=== PATIENT | female | born 1975 | race Caucasian/White ===

== ENCOUNTER 2022-11-08 17:52 | Emergency (ER) | payer BC ==
--- OUTSIDE RECORDS SUMMARY | 2022-11-08 17:55 | XMS REPORT | Continuity of Care Document ---
:1975 Author Organization [facility] Address [address] [place] [address] Dr. Castro [address] [place] [id number] Care Team Providers Name Role Phone HAMZAH_Moe Attending Clinician Unavailable Susana Goodson Attending Clinician [phone] FRANCISCO Attending Clinician Unavailable Akua Steve Attending Clinician [phone] WANDY Attending Clinician Unavailable Desiree Iqbal Attending Clinician [phone] HAMZAH_Moe Admitting Clinician Unavailable OSCAR_Penny Admitting Clinician Unavailable LUKE_Jane Admitting Clinician Unavailable Payers Payer Name Policy Type Policy Number Effective Date Expiration Date Penny mcknight [place] [id number] 2021 00:00:00 [place] Problems Condition Condition Condition Status Onset Resolution Last Treating Co mments Source Name Details Category Date Date Treatment Clinician Date Acute Acute Problem Active [place] upper Upper 9-14 Communi respirator Respirator 00:00: ty y y 00 Hospita infection Infection l Clinics Acute Acute Problem Active [place] sinusitis Sinusitis 4-11 Comm uni 00:00: ty 00 Hospita l Clinics Acute Acute Problem Active [place] pharyngiti Pharyngiti 4-11 Co mmuni s s 00:00: ty 00 Hospita Clinics Respirator Respirator Problem Active S weeny y tract y Tract 4-11 Communi congestion Congestion 00:00: ty and cough and Cough 00 Hosp ifeoma l Clinics Headache Headache Problem Active Sween y 4-11 Communi 00:00: ty 00 Hospita Clinics Elevated Elevated Problem Active Sween y blood-pres Blood-pres 4-11 Co mmuni sure sure 00:00: ty reading Reading 00 Hospita without without l diagnosis Diagnosis Clin ics of of hypertensi Hypertensi on on Allergies, Adverse Reactions, Alerts Allergy Allergy Status Severity Reaction(s) Onset Inactive Treating Comm ents Source Name Type Date Date Clinician Augmenti Allergy Active Moderate Vomiting Swe valentin n to Communi substanc ty e Hospita l Clinics Social History Smoking Status Start Date Stop Date Source Never Smoker [facility] Medications Ordered Filled Start Stop Current Ordering Indication Dosage Frequency Signature Comments Components Source Medication Medication Date Date Medication? Clinician (SIG) Name Name dexamethaso dexamethaso No Q1D dexamethas [place] ne sodium ne sodium 3-17 one sodium Communi phosphate phosphate 15:05: phosphate ty 10 mg/mL 10 mg/mL 44 10 mg/mL [facility] injection injection injection l solutionTak solutionTak solutionTa Clinics e 10 mg e 10 mg ke 10 mg every day every day every day by by by injection injection injection route. route. route. omeprazole omeprazole No 1capsul Q1D omeprazole [place] 40 mg 40 mg e(s) 40 mg Communi capsule,del capsule,del capsule,de ty ayed ayed layed Hospita release release release l Take 1 Take 1 Take 1 Clinics capsule capsule capsule every day every day every day by oral by oral by oral route for route for route for 90 days. 90 days. 90 days. Tylenol Tylenol No Tylenol [place] Communi ty Hospita l Clinics albuterol albuterol No albuterol [place] sulfate HFA sulfate HFA sulfate Communi 90 90 HFA 90 ty mcg/actuati mcg/actuati mcg/actuat Hospita on aerosol on aerosol ion l inhaler inhaler aerosol Clinic s INHALE 2 INHALE 2 inhaler PUFFS BY PUFFS BY INHALE 2 MOUTH EVERY MOUTH EVERY PUFFS BY 6 TO 8 6 TO 8 MOUTH HOURS FOR 7 HOURS FOR 7 EVERY 6 TO DAYS DAYS 8 HOURS FOR 7 DAYS azithromyci azithromyci No 1 Q1D azithromyc [place] n 500 mg n 500 mg in 500 mg Co mmuni tablet Take tablet Take tablet ty 1 tablet 1 tablet Take 1 Hospi ta every day every day tablet l by oral by oral every day Clin ics route for 5 route for 5 by oral days. days. route for 5 days. Medrol Medrol No 1dose Medrol [place] (Mickey) 4 mg (Mickey) 4 mg pk(s) (Mickey) 4 mg Communi tablets in tablets in tablets in ty a dose pack a dose pack a dose Hospita Take 1 dose Take 1 dose pack Take l pk by oral pk by oral 1 dose pk Clinics route as route as by oral directed directed route as for 6 days. for 6 days. directed for 6 days. Tylenol Tylenol No Tylenol [place] Communi ty [facility] benzonatate benzonatate No 1capsul TID benzonatat [place] 200 mg 200 mg e(s) e 200 mg Communi capsule capsule capsule ty Take 1 Take 1 Take 1 Hospita capsule 3 capsule 3 capsule 3 l times a day times a day times a Clinics by oral by oral day by route as route as oral route needed. needed. as needed. Medrol Medrol No 1dose Medrol [place] (Mickey) 4 mg (Mickey) 4 mg pk(s) (Mickey) 4 mg Communi tablets in tablets in tablets in ty a dose pack a dose pack a dose Hospita Take 1 dose Take 1 dose pack Take l pk by oral pk by oral 1 dose pk Clinics route as route as by oral directed. directed. route as directed. Tylenol Tylenol No Tylenol [place] Communi ty [facility] Zithromax Zithromax No Zithromax [place] Z-Mickey 250 Z-Mickey 250 Z-Mickey 250 Communi mg tablet mg tablet mg tablet ty TAKE 2 TAKE 2 TAKE 2 Hospita TABLETS TABLETS TABLETS l (500 MG) BY (500 MG) BY (500 MG) Clinics ORAL ROUTE ORAL ROUTE BY ORAL ONCE DAILY ONCE DAILY ROUTE ONCE FOR 1 DAY FOR 1 DAY DAILY FOR THEN 1 THEN 1 1 DAY THEN TABLET (250 TABLET (250 1 TABLET MG) BY ORAL MG) BY ORAL (250 MG) ROUTE ONCE ROUTE ONCE BY ORAL DAILY FOR 4 DAILY FOR 4 ROUTE ONCE DAYS DAYS DAILY FOR 4 DAYS clindamycin clindamycin No 1capsul Q8H clindamyci [place] HCl 300 mg HCl 300 mg e(s) n HCl 300 Communi capsule capsule mg capsule ty Take 1 Take 1 Take 1 Hospita capsule capsule capsule l every 8 every 8 every 8 Clinic s hours by hours by hours by oral route oral route oral route for 10 for 10 for 10 days. days. days. Tylenol Tylenol No Tylenol [place] Communi ty Hospita l Clinics Medrol Medrol No 1dose Medrol [place] (Mickey) 4 mg (Mickey) 4 mg pk(s) (Mickey) 4 mg Communi tablets in tablets in tablets in ty a dose pack a dose pack a dose Hospita Take 1 dose Take 1 dose pack Take l pk by oral pk by oral 1 dose pk Clinics route as route as by oral directed directed route as for 6 days. for 6 days. directed for 6 days. Zithromax Zithromax No Zithromax [place] Z-Mickey 250 Z-Mickey 250 Z-Mickey 250 Communi mg tablet mg tablet mg tablet ty TAKE 2 TAKE 2 TAKE 2 Hospita TABLETS TABLETS TABLETS l (500 MG) BY (500 MG) BY (500 MG) Clinics ORAL ROUTE ORAL ROUTE BY ORAL ONCE DAILY ONCE DAILY ROUTE ONCE FOR 1 DAY FOR 1 DAY DAILY FOR THEN 1 THEN 1 1 DAY THEN TABLET (250 TABLET (250 1 TABLET MG) BY ORAL MG) BY ORAL (250 MG) ROUTE ONCE ROUTE ONCE BY ORAL DAILY FOR 4 DAILY FOR 4 ROUTE ONCE DAYS DAYS DAILY FOR 4 DAYS amoxicillin amoxicillin No 1 Q12H amoxicilli [place] [phone] 875 Communi mg-potassiu mg-potassiu mg-potassi ty m [facility] clavulanate clavulanate clavulanat l 125 mg 125 mg e 125 mg Clinics tablet Take tablet Take tablet 1 tablet 1 tablet Take 1 every 12 every 12 tablet hours by hours by every 12 oral route oral route hours by as directed as directed oral route for 7 days. for 7 days. as directed for 7 days. ondansetron ondansetron No 1 Q5H ondansetro [place] 4 mg 4 mg n 4 mg Communi disintegrat disintegrat disintegra ty ing tablet ing tablet ting [facility] Place 1 Place 1 tablet l tablet tablet Place 1 Clinics every 4-6 every 4-6 tablet hours by hours by every 4-6 translingua translingua hours by l route as l route as translingu needed for needed for al route 5 days. 5 days. as needed for 5 days. prednisone prednisone No 1dose prednisone [place] 5 mg 5 mg pk(s) 5 mg Communi tablets in tablets in tablets in ty a dose pack a dose pack a dose Hospita Take 1 dose Take 1 dose pack Take l pk by oral pk by oral 1 dose pk Clinics route as route as by oral directed directed route as for 6 days. for 6 days. directed for 6 days. prednisone prednisone No 1 BID prednisone [place] 20 mg 20 mg 20 mg Communi tablet Take tablet Take tablet ty 1 tablet 1 tablet Take 1 Hospi ta twice a day twice a day tablet l by oral by oral twice a Clinic s route for 5 route for 5 day by days. days. oral route for 5 days. Tylenol Tylenol No Tylenol [place] Communi ty Hospita l Clinics acetylcyste acetylcyste No 2capsul BID acetylcyst [place] ine 600 mg ine 600 mg e(s) eine 600 Communi capsule capsule mg capsule ty Take 2 Take 2 Take 2 Hospita capsules capsules capsules l twice a day twice a day twice a Clinics by oral by oral day by route. route. oral route. azithromyci azithromyci No 1 Q1D azithromyc [place] n 500 mg n 500 mg in 500 mg Co mmuni tablet Take tablet Take tablet ty 1 tablet 1 tablet Take 1 Hospi ta every day every day tablet l by oral by oral every day Clin ics route for 5 route for 5 by oral days. days. route for 5 days. fenofibrate fenofibrate No 1 Q1D fenofibrat [place] nanocrystal nanocrystal e C ommuni lized 145 lized 145 nanocrysta ty mg tablet mg tablet llized 145 Hospita Take 1 Take 1 mg tablet l tablet tablet Take 1 Clinics every day every day tablet by oral by oral every day route for route for by oral 30 days. 30 days. route for 30 days. ivermectin ivermectin No 2 BID ivermectin [place] 3 mg tablet 3 mg tablet 3 mg C ommuni Take 2 Take 2 tablet ty tablets tablets Take 2 Hospita twice a day twice a day tablets l by oral by oral twice a Clinic s route for 5 route for 5 day by days. days. oral route for 5 days. prednisone prednisone No 1 BID prednisone [place] 20 mg 20 mg 20 mg Communi tablet Take tablet Take tablet ty 1 tablet 1 tablet Take 1 Hospi ta twice a day twice a day tablet l by oral by oral twice a Clinic s route for 5 route for 5 day by days. days. oral route for 5 days. promethazin promethazin No 1 Q7H promethazi [place] e 25 mg e 25 mg ne 25 mg Commu ni tablet Take tablet Take tablet ty 1 tablet 1 tablet Take 1 Hospi ta every 6-8 every 6-8 tablet l hours by hours by every 6-8 Cl inics oral route. oral route. hours by oral route. Tylenol Tylenol No Tylenol [place] Communi ty [facility] azithromyci azithromyci No azithromyc [place] n 250 mg n 250 mg in 250 mg Co mmuni tablet tablet tablet ty [facility] Tylenol Tylenol No Tylenol [place] Communi ty [facility] azithromyci azithromyci No azithromyc [place] n 250 mg n 250 mg in 250 mg Co mmuni tablet tablet tablet ty [facility] dexamethaso dexamethaso No 10mg Q1D dexamethas [place] ne sodium ne sodium one sodium Communi phosphate phosphate phosphate ty 10 mg/mL 10 mg/mL 10 mg/mL [facility] injection injection injection l solution solution solution Cli nics Take 10 mg Take 10 mg Take 10 mg every day every day every day by by by injection injection injection route. route. route. Tylenol Tylenol No Tylenol [place] Communi ty [facility] albuterol albuterol No 2puff(s Q7H albuterol [place] sulfate HFA sulfate HFA ) sulfate Communi 90 90 HFA 90 ty mcg/actuati mcg/actuati mcg/actuat Hospita on aerosol on aerosol ion l inhaler inhaler aerosol Clinic s Inhale 2 Inhale 2 inhaler puffs every puffs every Inhale 2 6-8 hours 6-8 hours puffs by by every 6-8 inhalation inhalation hours by route for 7 route for 7 inhalation days. days. route for 7 days. cefdinir cefdinir No cefdinir [place] valentin 300 mg 300 mg 300 mg Communi capsule capsule capsule ty TAKE ONE TAKE ONE TAKE ONE [facility] CAPSULE BY CAPSULE BY CAPSULE BY l MOUTH EVERY MOUTH EVERY MOUTH Clinics 12 HOURS 12 HOURS EVERY 12 FOR 14 DAYS FOR 14 DAYS HOURS FOR 14 DAYS metoprolol metoprolol No 1 Q1D metoprolol [place] succinate succinate succinate Communi ER 25 mg ER 25 mg ER 25 mg ty tablet,exte tablet,exte tablet,ext Hospita nded nded ended l release 24 release 24 release 24 Clinics hr Take 1 hr Take 1 hr Take 1 tablet tablet tablet every day every day every day by oral by oral by oral route for route for route for 90 days. 90 days. 90 days. Immunizations Ordered Immunization Filled Immunization Date Status Commen ts Source Name Name influenza, influenza, 2022-06-17 Completed [place] Communi ty injectable, injectable, 00:00:00 Hospital Cli nics quadrivalent quadrivalent Tdap Tdap 2018-09-18 Completed [place] [facility]i ty 00:00:00 Hospital Clini cs Tdap Tdap 2018-09-18 Completed [place] [facility] ty 00:00:00 Hospital Clini cs Tdap Tdap 2018-09-18 Completed [place] [facility] ty 00:00:00 Hospital Clini cs Tdap Tdap 2018-09-18 Completed [place] [facility]i ty 00:00:00 Hospital Clini cs Tdap Tdap 2018-09-18 Completed [place] [facility] ty 00:00:00 Hospital Clini cs Tdap Tdap 2018-09-18 Completed [place] [facility]i ty 00:00:00 Hospital Clini cs Tdap Tdap 2018-09-18 Completed [place] Communi ty 00:00:00 Hospital Clini cs Tdap Tdap 2018-09-18 Completed [place] Commun[facility] ty 00:00:00 Hospital Clini cs Tdap Tdap 2018-09-18 Completed [place] [facility] ty 00:00:00 Hospital Clini cs Tdap Tdap 2018-09-18 Completed [place] Communi ty 00:00:00 Hospital Clini cs Vital Signs Vital Name Observation Time Observation Value Comments Source BP Diastolic 2022-07-20 00:00:00 86 mm[Hg] [facility] s Height 2022-07-20 00:00:00 61 [in_i] [facility] s BMI (Body Mass 2022-07-20 00:00:00 28.2 kg/m2 [facility] s BP Systolic 2022-07-20 00:00:00 119 mm[Hg] [facility] s Body Weight 2022-07-20 00:00:00 2387.2 [oz_av] [facility] s BP Diastolic 2022-06-01 00:00:00 86 mm[Hg] [facility] s Height 2022-06-01 00:00:00 61 [in_i] [facility] s BMI (Body Mass 2022-06-01 00:00:00 27.9 kg/m2 [facility] Clinic s BP Systolic 2022-06-01 00:00:00 127 mm[Hg] [facility] s Body Weight 2022-06-01 00:00:00 2358.4 [oz_av] [facility] s BP Diastolic 2022-01-12 00:00:00 83 mm[Hg] [facility] s Height 2022-01-12 00:00:00 61 [in_i] [facility] s BMI (Body Mass 2022-01-12 00:00:00 27.6 kg/m2 [facility]) [facility] s BP Systolic 2022-01-12 00:00:00 126 mm[Hg] [facility] s Body Weight 2022-01-12 00:00:00 2339.2 [oz_av] [facility] s BP Diastolic 2021-12-10 00:00:00 91 mm[Hg] [facility] s Height 2021-12-10 00:00:00 61 [in_i] [facility] s BMI (Body Mass 2021-12-10 00:00:00 28.3 kg/m2 [facility]) [facility] s BP Systolic 2021-12-10 00:00:00 121 mm[Hg] [facility] s Body Weight 2021-12-10 00:00:00 2393.6 [oz_av] [facility] s BP Diastolic 2021-12-02 00:00:00 85 mm[Hg] [facility] s Height 2021-12-02 00:00:00 61 [in_i] [facility] s BMI (Body Mass 2021-12-02 00:00:00 28.1 kg/m2 [facility] Hospital Clinic s BP Systolic 2021-12-02 00:00:00 121 mm[Hg] [facility] s Body Weight 2021-12-02 00:00:00 2380.8 [oz_av] [facility] s BP Diastolic 2021-09-01 00:00:00 78 mm[Hg] [facility] s Height 2021-09-01 00:00:00 61 [in_i] [facility] s BMI (Body Mass 2021-09-01 00:00:00 28.3 kg/m2 [facility]) [facility] s BP Systolic 2021-09-01 00:00:00 129 mm[Hg] [facility] s Body Weight 2021-09-01 00:00:00 2396.8 [oz_av] [facility] s BP Diastolic 2021-05-05 00:00:00 88 mm[Hg] [facility] s Height 2021-05-05 00:00:00 61 [in_i] [facility] s BMI (Body Mass 2021-05-05 00:00:00 29.2 kg/m2 [facility] Hospital Clinic s BP Systolic 2021-05-05 00:00:00 123 mm[Hg] [facility] s Body Weight 2021-05-05 00:00:00 2473.6 [oz_av] [facility] s BP Diastolic 2020-12-24 00:00:00 103 mm[Hg] [facility] s Height 2020-12-24 00:00:00 61 [in_i] [facility] s BMI (Body Mass 2020-12-24 00:00:00 27.9 kg/m2 [facility]) [facility] s BP Systolic 2020-12-24 00:00:00 149 mm[Hg] [facility] s Body Weight 2020-12-24 00:00:00 2361.6 [oz_av] [facility] s Procedures This patient has no known procedures. Plan of Care Planned Activity Planned Date Details Comments Source Diagnostic Test 2022-07-20 rapid SARS CoV 2 Ag, [facility] Pending 00:00:00 QL [place], respiratory Hospital Clinics specimen [code = rapid SARS CoV 2 Ag, QL [place], respiratory specimen] Diagnostic Test 2022-07-20 rapid strep group A, [facility] Pending 00:00:00 throat [code = rapid Hospita Clinics strep group A, throat] Diagnostic Test 2022-07-20 rapid flu (A+B) [facility] Pending 00:00:00 [code = rapid flu Hospital linics (A+B)] Instructions [facility] s Encounters Start End Encounter Admission Attending Care Care Encounter Source Date/Time Date/Time Type Type Clinicians Facility Department ID 2022-07-20 2022-07-20 Outpatient CHRETIEN_F [facility] [id number] [place] 00:00:00 00:00:00 1102 Commun i ty [facility]ospita [facility] 2022-07-20 2022-07-20 Susana [facility] [place] [id number] [place] 00:00:00 00:00:00 Dulce Goodson Tn mmuni 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 2021-12-10 2021-12-10 Outpatient Steve, [facility] [id number] 00:00:00 00:00:00 Akua [id number] 2021-12-02 Outpatient [facility]ERS[facility] [id number] [place] 04:04:00 04:04:00 0317 Commun i ty Hospita l Clinics 2021-12-02 2021-12-02 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 2021-12-02 2021-12-02 Outpatient Steve, [facility] [id number] 00:00:00 00:00:00 Akua [id number] 2021-12-02 2021-12-02 Outpatient Steve, [facility] [id number] 00:00:00 00:00:00 Akua [id number] 2021-11-16 2021-11-16 Outpatient [facility] 2021 [place] 11:09:00 11:09:00 0301 Commun i ty Hospita l Clinics 2021-09-01 2021-09-01 Outpatient [facility]ERS_[facility] 2020 [place] 04:21:00 04:21:00 1215 Commun i ty Hospita l Clinics 2021-09-01 2021-09-01 Outpatient Steve, [facility] [id number] 00:00:00 00:00:00 Akua [id number] 2021-09-01 2021-09-01 Outpatient Steve, [facility] [id number] 00:00:00 00:00:00 Akua [id number] 2021-09-01 2021-09-01 Akua [facility] [place] [id number] [place] 00:00:00 00:00:00 Dulce Steve CAR LOADER-VICE PRESIDENT RESIDENTIAL [employer]AR SALES-C: Hospital - [address], [place] [address] , Ph. 2021-05-05 2021-05-05 Outpatient [facility] 50 [place] 11:04:00 11:04:00 _L 0818 Commun i ty [facility]osp[facility] 2021-05-05 2021-05-05 Outpatient [facility] aea [id number] 00:00:00 00:00:00 , Desiree [id number] 2021-05-05 2021-05-05 Desiree Martinez [facility] [place] 202 [id number] [place] 00:00:00 00:00:00 [facility] LINDA Castro-C: Hospital [address], [place] [address] , Ph. 2020-12-28 2020-12-28 Outpatient [facility] [place] 10:15:00 10:15:00 _L 0817 Commun i ty Hospita l Clinics 2020-12-24 2020-12-24 Outpatient [facility] 103 50 [place] 03:58:00 03:58:00 _L 0408 Commun i ty Hospita l Clinics 2020-12-24 2020-12-24 Outpatient [facility] 188 [id number] 00:00:00 00:00:00 , Desiree [id number] Michelle [id number] 2020-12-24 2020-12-24 Desiree Martinez [facility] [place] 202 [id number] [place] 00:00:00 00:00:00 [facility] LINDA Castro-C: Hospital - ty [address] [facility] [address], [place] [address] , Ph. Results Test Description Test Time Test Comments Results Result Comments Source rapid flu (A+B) 2022-07-20 13:54:00 Test Item Value Reference Range Interpretation Comme nts FLU A (test code = FLU A) negative FLU B (test code = FLU B) [facility] [id number] 13:54:00 Test Item Value Reference Range Interpretation Comments Strep (test code = Strep) [facility] Ag [Presence] in Respiratory specimen by Rapid [id number] 13:54:00 Test Item Value Reference Range Interpretation Comments SARS CoV 2 (test code = SARS CoV 2) [facility] Ag [Presence] in Respiratory specimen by Rapid [id number] 13:52:00 Test Item Value Reference Range Interpretation Comments SARS CoV 2 (test code = SARS CoV 2) [facility], [id number] 11:01:00 Test Item Value Reference Range Interpretation Comments Strep (test code = Strep) [facility]2021-12-10 11:00:00 Test Item Value Reference Range Interpretation Comments FLU A (test code = FLU A) negative FLU B (test code = FLU B) [facility] Ag [Presence] in Respiratory specimen by Rapid [id number] 11:00:00 Test Item Value Reference Range Interpretation Comments SARS CoV 2 (test code = SARS CoV 2) [facility], [id number] 13:46:00 Test Item Value Reference Range Interpretation Comments Strep (test code = Strep) [facility] Ag [Presence] in Respiratory specimen by Rapid [id number] 14:18:00 Test Item Value Reference Range Interpretation Comments SARS CoV 2 (test code = SARS CoV 2) negative [facility]
[2022-11-08 19:30] LABS: Hematocrit 37.4 % (36.0-45.0); Lymphocytes % 32.9 % (15.3-44.8); MCV 85.5 fL (80-100); MPV 6.9 fL (7.6-11.3); RBC Red Blood Cell Count 4.37 M/uL (3.86-4.86)
[2022-11-08 19:51] LABS: BUN Blood Urea Nitrogen 8 mg/dL (7-18); Bicarbonate 26 mmol/L (21-32); Glomerular Filtration Rate 97 ml/min (=/>90); Glucose Level 101 mg/dL (74-106); Potassium 3.3 mmol/L (3.5-5.1); Sodium Level 137 mmol/L (136-145)
[2022-11-08 19:54] LABS: Troponin High Sensitivity < 3.0 pg/mL (<58.9)
--- NOTE | 2022-11-08 20:27 | RAD REPORT ---
[facility] 7[facility]29 pm CLINICAL HISTORY: CHEST PAIN COMPARISON: Chest Pa And Lat (2 Views) dated 11/08/2022 TECHNIQUE: Portable AP view of the chest. FINDINGS: The lungs are clear. No pneumothorax or effusion. The cardiomediastinal contours are unrem arkable. IMPRESSION: No acute cardiopulmonary process.
[2022-11-08] MEDS ORDERED: PANTOPRAZOLE 40 MG INJ ONE (21:01)
[2022-11-08 21:05] LABS: Protime INR 1.1
--- NOTE | 2022-11-08 21:52 | RAD REPORT ---
EXAM DESCRIPTION: US - Abdomen Exam Limited - 11/08/2022 9:34 pm CLINICAL HISTORY: EPIGASTRIC PAIN COMPARISON: No comparisons TECHNIQUE Sonographic grayscale and color flow images of the right upper abdominal quadrant were ob tained. FINDINGS: The gallbladder demonstrates no gallstones. No pericholecystic fluid or gallbladder wall t hickening. The common bile duct is normal measuring 2 mm. The liver demonstrates no findings of intrahepatic biliary dilatation. IMPRESSION: Normal right upper quadrant ultrasound.
[2022-11-08] MEDS ORDERED: LIDOCAINE VISCOUS 2% SOLN 15 ML UDC ONE (22:11)
[2022-11-08] MEDS ORDERED: MAGNES/ALUMIN/SIMET 30ML UCUP ONE (22:11)
[2022-11-08] MEDS ORDERED: POTASSIUM 25 MEQ EFFERV TAB ONE (23:12)
[2022-11-09] MEDS ORDERED: METOCLOPRAMIDE 10 MG/2mL INJ ONE (00:22)
--- NOTE | 2022-11-09 01:15 | EDPHYS ---
Physician Documentation [facility] Name: Alejandrina Maravilla Age: 47 yrs Sex: Female : 1975 Arrival Date: 11/08/2022 Time: 17:53 Bed 18 Private MD: Merry Lakhani ED Physician Ruben Taylor HPI: 11/08 18:50 This 47 yrs old Female presents to ER via Ambulatory with complaints of Cough, Chest cp Pain - when swallowing, Back Pain. 18:50 The patient or guardian reports chest pain that is located primarily in the epigastric cp area. 18:50 Onset: 4 day(s) ago. cp 18:50 The pain radiates to back. Associated signs and symptoms: Pertinent positives: cough, cp nausea, vomiting, epigastric pain. The chest pain is described as intermittent. Duration: The patient or guardian reports multiple episodes, that are intermittent. Modifying factors: the symptoms are aggravated by swallowing food and/or liquids. Severity of pain: in the emergency department the pain is unchanged. 18:50 Patient reports she is currently taking prescribed Zithromax for pneumonia. 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 Flu vaccine is up to date. - Social history:: Smoking status: Patient denies any tobacco usage or history of. ROS: 18:50 Constitutional: Negative for body aches, chills, fever, poor PO intake. cp 18:50 Eyes: Negative for injury, pain, redness, and discharge. cp 18:50 ENT: Positive for difficulty swallowing, sore throat, Negative for drainage from ear(s), ear pain, difficulty handling secretions. 18:50 Neck: Negative for pain with movement, pain at rest, stiffness. 18:50 Cardiovascular: Positive for chest pain, Negative for edema, palpitations. 18:50 Respiratory: Positive for cough, Negative for shortness of breath, wheezing. 18:50 Abdomen/GI: Positive for abdominal pain, nausea, vomiting, of the epigastric area, Negative for diarrhea, constipation. 18:50 Back: Positive for radiated pain. 18:50 Neuro: Negative for altered mental status, dizziness, headache, numbness, syncope, weakness. 18:50 All other systems are negative. Exam: 18:55 Constitutional: The patient appears in no acute distress, alert, awake, cp non-diaphoretic, non-toxic, well developed, well nourished, uncomfortable. 18:55 Head/Face: Normocephalic, atraumatic. cp 18:55 Eyes: Periorbital structures: appear normal, Conjunctiva: normal, no exudate, no injection, Sclera: no appreciated abnormality, Lids and lashes: appear normal, bilaterally. 18:55 ENT: External ear(s): are unremarkable, Nose: is normal, Mouth: Lips: moist, Oral mucosa: moist, Posterior pharynx: Airway: no evidence of obstruction, patent, Uvula: normal, swelling, is not appreciated, erythema, is not appreciated, exudate, is not appreciated. 18:55 Neck: ROM/movement: is normal, is supple, no meningismus, no nuchal rigidity, Lymph nodes: no appreciated lymphadenopathy. 18:55 Chest/axilla: Inspection: normal. 18:55 Cardiovascular: Rate: normal, Rhythm: regular, Edema: is not appreciated, JVD: is not appreciated. 18:55 Respiratory: the patient does not display signs of respiratory distress, Respirations: normal, no use of accessory muscles, no retractions, labored breathing, is not present, Breath sounds: are clear throughout, no decreased breath sounds, no stridor, no wheezing. 18:55 Abdomen/GI: Inspection: abdomen appears normal, Palpation: soft, in all quadrants, mild abdominal tenderness, in the epigastric area and right upper quadrant, rebound tenderness, is not appreciated, involuntary guarding, is not appreciated. 18:55 Back: ROM is normal, CVA tenderness, is absent, vertebral tenderness, is not appreciated. 18:55 Neuro: Orientation: to person, place \T\ time. Mentation: is normal, Motor: moves all fours, strength is normal, Sensation: is normal. 21:02 ECG was reviewed by the Attending Physician. cp Vital Signs: 18:12 BP 153 / 98; Pulse 99; Resp 18; Temp 98.9; Pulse Ox 100% ; Weight 66.22 kg; Height 5 ap3 ft. 1 in. (154.94 cm); 20:16 BP 139 / 110; Pulse 97; Resp 18 S; Pulse Ox 99% on R/A; aa9 21:00 BP 143 / 98; Pulse 95; Resp 15 S; Pulse Ox 99% on R/A; aa9 22:15 BP 125 / 94; Pulse 89; Resp 17 S; Pulse Ox 97% on R/A; aa9 18:12 Body Mass Index 27.59 (66.22 kg, 154.94 cm) ap3 MDM: 18:22 Patient medically screened. cp 11/09 01:13 Data reviewed: vital signs, nurses notes, lab test result(s), EKG, radiologic studies, cp CT scan, plain films, ultrasound. 01:13 Consideration of Admission/Observation Escalation of care including cp admission/observation considered. I considered the following discharge prescriptions or medication management in the emergency department Medications were administered in the Emergency Department. See MAR. Independent interpretation of the following test(s) in the Emergency Department EKG: See my EKG interpretation above. 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 Response to treatment: the patient's symptoms have markedly improved after treatment, and as a result, I will discharge patient. Special discussion: Based on the patient's history, exam, and Dx evaluation, there is no indication for emergent intervention or inpatient Tx. It is understood by the patient/guardian that if the Sx's persist or worsen they need to return immediately for re-evaluation. 11/08 18:42 Order name: Basic Metabolic Panel ld1 11/08 18:42 Order name: CBC with Diff ld1 11/08 18:42 Order name: Troponin HS ld1 11/08 19:31 Order name: CBC with Automated Diff; Complete Time: 20:36 EDMS 11/08 20:36 Interpretation: Normal except: WBC 12.20; PLT 445; MPV 6.9. cp 11/08 19:54 Order name: Basic Metabolic Panel; Complete Time: 20:36 EDMS 11/08 20:37 Interpretation: Normal except: K 3.3. cp 11/08 19:54 Order name: Troponin High Sensitivity; Complete Time: 20:36 EDMS 11/08 18:42 Order name: XRAY Chest (1 view) ld1 11/08 20:28 Order name: RAD; Complete Time: 20:36 EDMS 11/08 20:39 Interpretation: Report reviewed. cp 11/08 20:38 Order name: US Abdomen Limited cp 11/08 20:38 Order name: D-Dimer cp 11/08 20:38 Order name: PT-INR cp 11/08 21:05 Order name: Protime (+INR); Complete Time: 21:56 EDMS 11/08 21:05 Order name: D-Dimer; Complete Time: 21:56 EDMS 11/08 21:52 Order name: US; Complete Time: 21:56 EDMS 11/08 21:57 Interpretation: Report reviewed. cp 11/08 18:42 Order name: EKG; Complete Time: 18:43 ld1 11/08 18:42 Order name: Cardiac monitoring; Complete Time: 20:28 ld1 11/08 18:42 Order name: EKG - Nurse/Tech; Complete Time: 20:59 ld1 11/08 18:42 Order name: IV Saline Lock; Complete Time: 19:25 ld1 11/08 18:42 Order name: Labs collected and sent; Complete Time: 19:25 ld1 11/08 18:42 Order name: O2 Per Protocol; Complete Time: 20:28 ld1 11/08 18:42 Order name: O2 Sat Monitoring; Complete Time: 20:28 ld1 11/08 23:15 Order name: CT Aorta for Dissection cp EC/21 21:02 Rate is 84 beats/min. Rhythm is regular. ID interval is normal. QRS interval is normal. cp QT interval is normal. T waves are Inverted in lead aVR. Interpreted by me. Reviewed by me. Administered Medications: 21:24 Drug: ProTONIX (pantoprazole) 40 mg Route: IVP; Site: left forearm; 11/09 00:27 Follow up: Response: No adverse reaction 11/08 22:12 Drug: GI Cocktail without - (Maalox Suspension 30 ml, Lidocaine Liquid 2 % 15 aa9 ml) Route: PO; 11/09 00:27 Follow up: Response: No adverse reaction 11/08 23:09 Drug: Potassium Effervescent Tablet 50 mEq Route: PO; 11/09 00:27 Follow up: Response: No adverse reaction 00:21 Drug: Reglan (metoCLOPramide) 10 mg Route: IVP; Site: left forearm; aa9 01:16 Follow up: Response: No adverse reaction 01:32 Drug: Rocephin (cefTRIAXone) 2 grams Route: IV; Rate: calculated rate; Site: left aa9 forearm; 01:32 Drug: Ketorolac 15 mg Route: IVP; Site: left forearm; aa9 Disposition Summary: 11/09/22 01:14 Discharge Ordered Location: Home cp Problem: new cp Symptoms: have improved cp Condition: Stable cp Diagnosis - Other pneumonia, unspecified organism cp - Chest pain, unspecified cp - Dorsalgia, unspecified cp Followup: cp - With: Private Physician - When: 2 - 3 days - Reason: Recheck today's complaints Discharge Instructions: - Discharge Summary Sheet cp - Acute Back Pain, Adult cp - Nonspecific Chest Pain, Adult cp - Community-Acquired Pneumonia, Adult cp Forms: - Medication Reconciliation Form cp - Thank You Letter cp - Antibiotic Education cp - Prescription Opioid Use cp Prescriptions: - Protonix 40 mg Oral Tablet - take 1 tablet by ORAL route once daily; 30 tablet; Refills: 0, Product cp Selection Permitted - cefpodoxime 200 mg Oral Tablet - take 1 tablet by ORAL route every 12 hours for 10 days with food; 20 tablet; cp Refills: 0, Product Selection Permitted Signatures: Dispatcher [employer] EDRuben Garcia PA PA cp Nisha Espinoza RN RN ap3 Arlene Castelan RN RN ld1 Bronwyn Hensley RN RN aa9
--- NOTE | 2022-11-09 01:15 | ER ---
Nurse's Notes [facility] Name: Alejandrina Maravilla Age: 47 yrs Sex: Female : 1975 Arrival Date: 11/08/2022 Time: 17:53 Bed 18 Private MD: Merry Lakhani Diagnosis: Other pneumonia, unspecified organism;Chest pain, unspecified;Dorsalgia, unspecified Presentation: 11/08 18:12 Chief complaint: Patient states: she was seen by dr. lakhani, and was put on lexapro and ap3 levaquin. she had a reaction, and the medication was changed to zithromax. patient states that ever since, every time she swallows food she has a pain down her esophagus. Coronavirus screen: At this time, the client does not indicate any symptoms associated with coronavirus-19. Ebola Screen: No symptoms or risks identified at this time. Initial Sepsis Screen: Does the patient meet any 2 criteria? No. Patient's initial sepsis screen is negative. Does the patient have a suspected source of infection? No. Patient's initial sepsis screen is negative. Risk Assessment: Do you want to hurt yourself or someone else? Patient reports no desire to harm self or others. Onset of symptoms was November 05, 2022. 18:12 Method Of Arrival: Ambulatory ap3 18:12 Acuity: ELISSA 3 ap3 Triage Assessment: 18:16 General: Appears in no apparent distress. Behavior is calm, cooperative, appropriate ap3 for age. Pain: Complains of pain in mid-sternal area Aggravated by swallowing food. Neuro: Level of Consciousness is awake, alert, obeys commands, Oriented to person, place, time, situation. Cardiovascular: Patient's skin is warm and dry. Respiratory: Airway is patent Respiratory effort is even, unlabored, Respiratory pattern is regular, symmetrical. 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 Flu vaccine is up to date. - Social history:: Smoking status: Patient denies any tobacco usage or history of. Screenin:17 [facility] ED Fall Risk Assessment (Adult) History of falling in the last 3 months, ap3 including since admission No falls in past 3 months (0 pts). Abuse screen: Denies threats or abuse. Nutritional screening: No deficits noted. Tuberculosis screening: No symptoms or risk factors identified. Assessment: 18:17 Pain: Pain began gradually. ap3 21:39 General: Appears in no apparent distress. comfortable, Behavior is calm, cooperative. aa9 Pain: Complains of pain in mid-sternal area Pain radiates to right breast Quality of pain is described as burning, sharp, Is episodic. Cardiovascular: Rhythm is regular. Respiratory: Airway is patent Respiratory effort is even, unlabored. GI: Reports nausea. 11/09 01:33 Reassessment: Patient appears in no apparent distress at this time. Patient and/or aa9 family updated on plan of care and expected duration. Pain level reassessed. Patient is alert, oriented x 3, equal unlabored respirations, skin warm/dry/pink. Patient denies pain at this time. Vital Signs: 11/08 18:12 BP 153 / 98; Pulse 99; Resp 18; Temp 98.9; Pulse Ox 100% ; Weight 66.22 kg; Height 5 ap3 ft. 1 in. (154.94 cm); 20:16 BP 139 / 110; Pulse 97; Resp 18 S; Pulse Ox 99% on R/A; aa9 21:00 BP 143 / 98; Pulse 95; Resp 15 S; Pulse Ox 99% on R/A; aa9 22:15 BP 125 / 94; Pulse 89; Resp 17 S; Pulse Ox 97% on R/A; aa9 18:12 Body Mass Index 27.59 (66.22 kg, 154.94 cm) ap3 ED Course: 17:53 Patient arrived in ED. am2 17:54 Merry Lakhani is Private Physician. am2 18:15 Triage completed. ap3 18:17 Arm band placed on left wrist. ap3 18:17 Patient maintains SpO2 saturation greater than 95% on room air. ap3 18:19 Ruben Camacho PA is PHCP. cp 18:19 Ruben Taylor MD is Attending Physician. cp 19:25 Inserted saline lock: 22 gauge in left forearm, using aseptic technique. Blood ds4 collected. 11/09 00:40 Patient has correct armband on for positive identification. Call light in reach. Adult aa9 w/ patient. Client placed on continuous cardiac and pulse oximetry monitoring. NIBP monitoring applied. Diet: Patient given water. 01:32 No provider procedures requiring assistance completed. IV discontinued, intact, aa9 bleeding controlled, No redness/swelling at site. Pressure dressing applied. Administered Medications: 11/08 21:24 Drug: ProTONIX (pantoprazole) 40 mg Route: IVP; Site: left forearm; aa9 11/09 00:27 Follow up: Response: No adverse reaction aa9 11/08 22:12 Drug: GI Cocktail without - (Maalox Suspension 30 ml, Lidocaine Liquid 2 % 15 aa9 ml) Route: PO; 11/09 00:27 Follow up: Response: No adverse reaction aa9 11/08 23:09 Drug: Potassium Effervescent Tablet 50 mEq Route: PO; aa9 11/09 00:27 Follow up: Response: No adverse reaction aa9 00:21 Drug: Reglan (metoCLOPramide) 10 mg Route: IVP; Site: left forearm; aa9 01:16 Follow up: Response: No adverse reaction aa9 01:32 Drug: Rocephin (cefTRIAXone) 2 grams Route: IV; Rate: calculated rate; Site: left aa9 forearm; 01:32 Drug: Ketorolac 15 mg Route: IVP; Site: left forearm; aa9 Medication: 01:33 VIS not applicable for this client. aa9 Outcome: 01:14 Discharge ordered by . cesar 01:33 Discharged to home ambulatory, with family. aa9 01:33 Condition: stable 01:33 Discharge instructions given to patient, Instructed on discharge instructions, follow up and referral plans. medication usage, Demonstrated understanding of instructions, follow-up care, medications, Prescriptions given X 2. 01:33 Patient left the ED. aa9 Signatures: Delvin Healy ds4 Ruben Camacho PA PA cp Moreno, Amanda am2 Nisha Espinoza, RN RN ap3 Bronwyn Hensley, RN RN aa9
[2022-11-09] MEDS ORDERED: CEFTRIAXONE 2000 MG/VIAL ONE (01:23)
[2022-11-09] MEDS ORDERED: KETOROLAC 30 MG/ML INJ ONE (01:23)
[2022-11-09 03:12] VITALS: TEMP 98.9
[2022-11-09 03:20] VITALS: BP 125/94; O2SAT 97
--- NOTE | 2022-11-09 14:27 | RAD REPORT ---
EXAM DESCRIPTION: CT - Angio Aorta For Dissection - 11/09/2022 6:55 am CLINICAL HISTORY: Chest pain, back pain TECHNIQUE: Axial computed tomographic angiography images of the chest, abdomen and pelvis with intra venous contrast. Sagittal and coronal reformatted images were created and reviewed. This CT exam was performed using one or more of the following dose reduction techniques: automated exposure cont rol, adjustment of the mA and/or kV according to patient size, and/or use of iterative reconstruction technique. MIP reconstructed images were created and reviewed. COMPARISON: No relevant prior studies available. FINDINGS: VASCULATURE: Aorta: No acute findings. No aortic aneurysm. No dissection. Pulmonary arteries: Unremarkable as visualized. No pulmonary embolism is identified. Great vessels of aortic arch: No acute findings. No dissection. No arterial occlusion or signif icant stenosis. Celiac trunk and mesenteric arteries: No acute findings. No occlusion or significant stenosis. Renal arteries: No acute findings. No occlusion or significant stenosis. Iliac arteries: No acute findings. No occlusion or significant stenosis. CHEST: Lungs: Minimal biapical pleural parenchymal scar. 12 x 9 x 12 mm right apical nodule (series 402 image 21 and series 404 image 58). Patchy peripheral groundglass opacities within the bilateral low er, right middle lobes and lingula. Pleural space: Unremarkable. No significant effusion. No pneumothorax. Heart: Unremarkable. No cardiomegaly. No significant pericardial effusion. Mediastinum: Soft tissue density in the anterior mediastinum thought to represent residual thymic t issue. ABDOMEN: Liver: Unremarkable. No mass. Gallbladder and bile ducts: Unremarkable. No calcified stones. No ductal dilation. Pancreas: Unremarkable. No ductal dilation. No mass. Spleen: Unremarkable. No splenomegaly. Adrenals: Unremarkable. No mass. Kidneys and ureters: Unremarkable. No hydronephrosis. No solid mass. Stomach and bowel: Unremarkable. No obstruction. No mucosal thickening. PELVIS: Appendix: No findings to suggest acute appendicitis. Bladder: Unremarkable. No mass. Reproductive: Unremarkable as visualized. CHEST, ABDOMEN and PELVIS: Intraperitoneal space: Unremarkable. No significant fluid collection. No free air. Bones/joints: Minimal multilevel spondylosis. No acute fracture. No dislocation. Soft tissues: Small fat-containing umbilical hernia. Lymph nodes: Unremarkable. No enlarged lymph nodes. IMPRESSION: 1. No evidence for thoracic or abdominal aortic aneurysm or dissection. 2. Scattered multifocal infiltrates within the lungs bilaterally. 3. 11 mm right apical nodule. Consider a non-contrast Chest CT at 3 months, a PET/CT, or tissue s ampling. Note: This recommendation does not apply to patients younger than 35 years, immunocompromi sed patients, and patients with cancer. F/u in patients with significant comorbidities as clinically warranted. For lung cancer screening, adhere to Lung-RADS guidelines. Reference: Radiology. 2017 Ju l; 284(1):228-243 4. Other findings as above. Electronically signed by: Peter Melissa MD 11/09/2022 12:30 AM ADJUDICATION SPECIALIST Due to temporary technical issues with the PACS/Fluency reporting system, reports are being signed by the in house radiologists without review as a courtesy to insure prompt reporting. The interpreting radiologist is fully responsible for the content of the report.
--- NOTE | 2022-11-09 15:21 | EKG ---
Test Date: 2022-11-08 Test Time: 20:57:53 Manager Star: STEFAN MEASUREMENT RESULTS: Intervals: Rate: 84 TX: 142 QRSD: 84 QT: 376 QTc: 444 [place]: P: 38 TX: 142 QRS: 3 T: 11 INTERPRETIVE STATEMENTS: Normal sinus rhythm Normal ECG Compared to ECG 07/07/2004 12:15:00 No significant changes Electronically Signed On 11-09-22 15:19:25 LICENSED DIRECT ENTRY MIDWIFE by Genaro Cavazos
== END 2022-11-09 01:33 | disposition home or self-care (01) ==
LOC: ER 17:52
DX: J18.8 Other pneumonia, unspecified organism (principal); M54.9 Dorsalgia, unspecified; Z88.1 Allergy status to other antibiotic agents; Z88.5 Allergy status to narcotic agent
CPT/HCPCS: 93005; 85025; 80048; 36415; 85610; 85379; 84484; 71275; 74175; 71045; 76705; Q9967; J2765; C9113; J0696; 96374; 96375; 99284

== ENCOUNTER 2024-01-25 17:44 | Emergency (ER) | payer BC ==
[2024-01-25] MEDS ORDERED: dexAMETHasone 10 MG/ML VIAL ONE (18:16)
[2024-01-25] MEDS ORDERED: METOCLOPRAMIDE 10 MG/2mL INJ ONE (18:17)
[2024-01-25] MEDS ORDERED: DIPHENHYDRAMINE 50 MG/ML VIAL ONE (18:17)
[2024-01-25] MEDS ORDERED: NA CHLORIDE 0.9% 1,000 ML ONE (18:17)
--- NOTE | 2024-01-25 19:43 | RAD REPORT ---
EXAM DESCRIPTION: CT - Head Brain Wo Cont - 01/25/2024 6:20 pm CLINICAL HISTORY: HEADACHE COMPARISON: No comparisons TECHNIQUE: Noncontrast head CT images were obtained without IV contrast. Multiplanar reformats were generated and reviewed. All CT scans are performed using dose optimization technique as appropriate and may include automated exposure control or mA/KV adjustment according to patient size. FINDINGS: No intracranial hemorrhage, mass, or edema. Midline structures are unremarkable. Normal ventricular caliber for age. Zuleta-white matter differentiation is preserved, without evidence of acute infarct. No abnormal extra- axial fluid collections. Mastoid air cells are well aerated. Right maxillary sinus mucous retention cyst. No acute bony findings. IMPRESSION: No evidence of an acute intracranial process.
--- NOTE | 2024-01-25 19:48 | ER ---
Nurse's Notes [facility] Name: Alejandrina Maravilla Age: 48 yrs Sex: Female : 1975 Arrival Date: 01/25/2024 Time: 17:44 Bed 19 Private MD: Diagnosis: Headache Presentation: 01/24 17:53 Chief complaint: Patient states: "I've had a headache for about 2 days now". [facility] 17:53 Coronavirus screen: headache. Ebola Screen: Patient denies travel to an Ebola-affected [facility] area in the 21 days before illness onset. Initial Sepsis Screen: Does the patient meet any 2 criteria? HR > 90 bpm. Does the patient have a suspected source of infection? No. Patient's initial sepsis screen is negative. Risk Assessment: Do you want to hurt yourself or someone else? Patient reports no desire to harm self or others. Onset of symptoms was January 2024. 17:53 Acuity: ELISSA 3 [facility] 17:53 Method Of Arrival: Ambulatory [facility] Triage Assessment: 18:00 Headache History: The patient has had previous headaches and this one is similar to bp previous episodes. General: Appears in no apparent distress. uncomfortable, Behavior is cooperative, appropriate for age, anxious. Pain: Complains of pain in head Pain currently is 7 out of 10 on a pain scale. Pain began 2-3 days ago. Also complains of nausea. Neuro: Level of Consciousness is awake, alert, obeys commands, Oriented to Appropriate for age Reports headache frontal area. Historical: - Allergies: 18:07 Augmentin; aa5 18:07 Codeine; aa5 18:07 Levaquin; aa5 - PMHx: 18:07 Migraine; Granulomatosis with polyangitis (GPA); aa5 - Immunization history:: Adult Immunizations unknown. - Infectious Disease History:: Denies. - Social history:: Smoking status: Patient denies any tobacco usage or history of. Screenin:00 [facility] ED Fall Risk Assessment (Adult) History of falling in the last 3 months, bp including since admission No falls in past 3 months (0 pts). Abuse screen: Denies threats or abuse. Denies injuries from another. Nutritional screening: No deficits noted. Tuberculosis screening: No symptoms or risk factors identified. Assessment: 18:00 General: Appears in no apparent distress. uncomfortable, Behavior is cooperative, bp appropriate for age, anxious. Pain: Complains of pain in head. Neuro: Level of Consciousness is awake, alert, obeys commands, Oriented to Appropriate for age Reports headache. Cardiovascular: Rhythm is sinus rhythm. Respiratory: No deficits noted. GI: No signs and/or symptoms were reported involving the gastrointestinal system. : No signs and/or symptoms were reported regarding the genitourinary system. EENT: No deficits noted. 19:11 Reassessment: Patient appears in no apparent distress at this time. Patient and/or bp family updated on plan of care and expected duration. Pain level reassessed. Patient is alert, oriented x 3, equal unlabored respirations, skin warm/dry/pink. 19:56 Reassessment: Patient and/or family updated on plan of care and expected duration. Pain tm6 level reassessed. Patient is alert, oriented x 3, equal unlabored respirations, skin warm/dry/pink. Vital Signs: 17:53 BP 164 / 107; Pulse 115; Resp 18 S; Temp 98.3(O); Pulse Ox 100% on R/A; Weight 74.84 kg aa5 (R); Height 5 ft. 1 in. (R); 19:11 BP 118 / 80; Pulse 86; Pulse Ox 99% on R/A; Pain 6/10; bp 19:56 BP 118 / 80; Pulse 98; Resp 19; Temp 98(TE); Pulse Ox 99% on R/A; Pain 3/10; tm6 17:53 Body Mass Index 31.18 (74.84 kg, 154.94 cm) aa5 19:11 Pain Scale: Adult bp 19:56 Pain Scale: Adult tm6 ED Course: 17:45 Patient arrived in ED. rg4 17:47 Modesto Fung DO is Attending Physician. ms3 17:53 Brian Granda, RN is Primary Nurse. bp 17:53 Arm band placed on Patient placed in an exam room, on a stretcher. aa5 18:00 Patient has correct armband on for positive identification. Provided Education on: N/A. bp 18:00 Inserted saline lock: 22 gauge in right hand, using aseptic technique. bp 18:10 Triage completed. aa5 18:21 CT Head Brain wo Cont In Process Unspecified. EDMS 19:47 George Perez DO is Referral Physician. ms3 19:56 No provider procedures requiring assistance completed. IV discontinued, intact, tm6 bleeding controlled, No redness/swelling at site. Pressure dressing applied. Administered Medications: 18:33 Drug: NS 0.9% IV 1000 ml IV at 1 bolus Per protocol; 1000 mL bolus Route: IV; Rate: 1 bp bolus; Site: right antecubital; 18:33 Drug: Decadron - Dexamethasone IVP 10 mg IVP once Route: IVP; Site: right hand; bp 18:34 Drug: metoCLOPramide IVP 10 mg IVP once; over 1 to 2 minutes Route: IVP; Site: right bp hand; 18:34 Drug: diphenhydrAMINE IVP 25 mg IVP once Route: IVP; Site: right hand; bp Medication: 18:00 VIS not applicable for this client. bp Outcome: 19:48 Discharge ordered by MD. ms3 19:57 Discharged to home ambulatory, with family, tm6 19:57 Condition: stable 19:57 Discharge instructions given to patient, family, Instructed on discharge instructions, follow up and referral plans. Demonstrated understanding of instructions, follow-up care, 19:57 Patient left the ED. tm6 Signatures: Dispatcher [employer] EDMS Samantha Flores RN RN [id number] Loretta Saleem 4 Brian Granda, RN RN Modesto Grajeda DO DO ms3 Naren Kenney, BEATRICE RN tm6 Corrections: (The following items were deleted from the chart) 18:12 17:53 Initial Sepsis Screen: Does the patient meet any 2 criteria? No. Patient's aa5 initial sepsis screen is negative. Does the patient have a suspected source of infection? No. Patient's initial sepsis screen is negative. aa5
--- NOTE | 2024-01-25 19:48 | EDPHYS ---
Physician Documentation [facility] Name: Alejandrina Maravilla Age: 48 yrs Sex: Female : 1975 Arrival Date: 01/25/2024 Time: 17:44 Bed 19 Private MD: ED Physician Modesto Fung HPI: 01/24 18:05 This 48 yrs old Female presents to ER via Unassigned with complaints of Headache. ms3 18:05 48-year-old female with past medical history of migraines presents to the emergency ms3 department for headache that is been ongoing for 2 days. Patient states she is taken Tylenol and ibuprofen without relief. She states her whole head is hurting and is a nagging pressure that is rated an 8/10. She denies any alleviating or inciting factors.. Historical: - Allergies: 18:07 Augmentin; aa5 18:07 Codeine; aa5 18:07 Levaquin; aa5 - PMHx: 18:07 Migraine; Granulomatosis with polyangitis (GPA); aa5 - Immunization history:: Adult Immunizations unknown. - Infectious Disease History:: Denies. - Social history:: Smoking status: Patient denies any tobacco usage or history of. ROS: 18:05 Constitutional: Negative for fever, and chills. Cardiovascular: Negative for chest ms3 pain, and palpitations. Respiratory: Negative for shortness of breath, cough, wheezing, and pleuritic chest pain, Abdomen/GI: Negative for abdominal pain, nausea, vomiting, diarrhea, and constipation, MS/Extremity: Negative for injury and deformity, Skin: Negative for injury, rash, and discoloration, 18:05 Neuro: Positive for headache, Exam: 18:05 Constitutional: This is a well developed, well nourished patient who is awake, alert, ms3 and in no acute distress. Head/Face: Normocephalic, atraumatic. Neck: Trachea midline, no cervical lymphadenopathy. Supple, full range of motion without nuchal rigidity, or vertebral point tenderness. No Meningismus. Chest/axilla: Normal chest wall appearance and motion. Nontender with no deformity. 18:05 Respiratory: Lungs have equal breath sounds bilaterally, clear to auscultation and percussion. No rales, rhonchi or wheezes noted. No increased work of breathing, no retractions or nasal flaring. Abdomen/GI: Soft, non-tender, with normal bowel sounds. No distension or tympany. No guarding or rebound. No evidence of tenderness throughout. 18:05 Cardiovascular: Rate: tachycardic, Rhythm: regular, Pulses: no pulse deficits are appreciated, Vital Signs: 17:53 BP 164 / 107; Pulse 115; Resp 18 S; Temp 98.3(O); Pulse Ox 100% on R/A; Weight 74.84 kg aa5 (R); Height 5 ft. 1 in. (R); 19:11 BP 118 / 80; Pulse 86; Pulse Ox 99% on R/A; Pain 6/10; bp 19:56 BP 118 / 80; Pulse 98; Resp 19; Temp 98(TE); Pulse Ox 99% on R/A; Pain 3/10; tm6 17:53 Body Mass Index 31.18 (74.84 kg, 154.94 cm) aa5 19:11 Pain Scale: Adult bp 19:56 Pain Scale: Adult tm6 MDM: 18:04 Patient medically screened. ms3 18:05 Differential diagnosis: cluster headache, intracerebral hemorrhage, migraine. ms3 18:50 Independent interpretation of the following test(s) in the Emergency Department CT ms3 Scan: My interpretation is CT Head without contrast reviewed by me does not reveal ICH. 19:46 Data reviewed: vital signs, nurses notes, and as a result, I will discharge patient. ms3 Counseling: I had a detailed discussion with the patient and/or guardian regarding the historical points, exam findings, and any diagnostic results supporting the discharge/admit diagnosis, radiology results, the need for outpatient follow up, to return to the emergency department if symptoms worsen or persist or if there are any questions or concerns that arise at home. Special discussion: I discussed with the patient/guardian in detail that at this point there is no indication for admission to the hospital. It is understood, however, that if the symptoms persist or worsen the patient needs to return immediately for re-evaluation. ED course: Discussed obtaining lumbar puncture to rule out intracranial hemorrhage such as subarachnoid hemorrhage with patient. Patient declines at this time. On reevaluation patient is improved, alert and oriented x 4, no apparent distress, nontoxic-appearing. Patient to follow-up with her primary care physician in 2 to 3 days. Patient understands and agrees with plan. All questions were answered. Return precautions discussed include worsening symptoms, or any other concerns.. 01/24 18:05 Order name: CT Head Brain wo Cont; Complete Time: 19:44 ms3 01/24 18:07 Order name: Oxygen: 2L NC; Complete Time: 18:21 ms3 Administered Medications: 18:33 Drug: NS 0.9% IV 1000 ml IV at 1 bolus Per protocol; 1000 mL bolus Route: IV; Rate: 1 bp bolus; Site: right antecubital; 18:33 Drug: Decadron - Dexamethasone IVP 10 mg IVP once Route: IVP; Site: right hand; bp 18:34 Drug: metoCLOPramide IVP 10 mg IVP once; over 1 to 2 minutes Route: IVP; Site: right bp hand; 18:34 Drug: diphenhydrAMINE IVP 25 mg IVP once Route: IVP; Site: right hand; bp Disposition Summary: 01/25/24 19:48 Discharge Ordered Notes: Location: Home ms3 Condition: Stable ms3 Diagnosis - Headache ms3 Followup: ms3 - With: George Perez DO - When: 2 - 3 days - Reason: Recheck today's complaints Discharge Instructions: - Discharge Summary Sheet ms3 - General Headache Without Cause ms3 Forms: - Medication Reconciliation Form ms3 - Antibiotic Education ms3 - Prescription Opioid Use ms3 - Patient Portal Instructions ms3 - Leadership Thank You Letter ms3 Signatures: Dispatcher [employer] Samantha Gallagher RN RN aa5 Brian Granda RN RN Modesto Grajeda DO DO ms3
[2024-01-25 20:30] VITALS: BP 118/80; TEMP 98; O2SAT 99
== END 2024-01-25 19:57 | disposition home or self-care (01) ==
LOC: ER 17:44
DX: R51.9 Headache, unspecified (principal); Z88.1 Allergy status to other antibiotic agents; Z88.5 Allergy status to narcotic agent
CPT/HCPCS: 70450; 96375; 96374; 99284; J2765; J1200; J1100; J7030